=== PATIENT | female | born 1965 ===

== ENCOUNTER → 2018-11-03 | Outpatient (CLI) | payer SELFPAY ==
--- NOTE | 2018-11-07 08:28 | RADIOLOGY IMAGING REPORT ---
FACILITY[place] [facility] [place]IENT NAME: GERARDO SOSA : [id number] MR: [id number]: [id number] EXAM DATE: [id number] ORDERING PHYSICIAN: JAQUELIN SCHMID TECHNOLOGIST: Jenny Delvalle PROCEDURE: BILATERAL DIGITAL SCREENING MAMMOGRAM WITH CAD ASSISTED INTERPRETATION & 3D TOMOSYNTHESIS REASON FOR STUDY: Screening FAMILY HISTORY OF BREAST CANCER: None BREAST PROCEDURES/TREATMENTS: Benign aspiration of both breasts. COMPARISON: Mammograms 07/05/17, 07/09/15, 12/13/14, 12/04/13, 02/14/12 VIEWS OBTAINED: Bilateral 2D & 3D full field CC & MLO projections BREAST DENSITY: The breasts are heterogeneously dense which can obscure small masses. MAMMOGRAM FINDINGS: The parenchymal pattern has remained stable allowing for difference in mammographic technique & patient positioning. DIAGNOSTIC CATEGORY 1--NEGATIVE. RECOMMENDATIONS: ROUTINE MAMMOGRAM AND CLINICAL EVALUATION. IMPRESSION: BIRADS 1: Negative. Dictated by: Lena Littlejohn M.D. on 11/06/2018 at 16:06 Transcribed by: RICH on 11/07/2018 at 7:35 Approved by: Lena Littlejohn M.D. on 11/07/2018 at 8:22 [facility]
== END ==
LOC: MAMO 15:17
PROVIDERS: ATTEND Obstetrics & Gynecology
DX: Z12.31 Encounter for screening mammogram for malignant neoplasm of breast (principal)
CPT/HCPCS: 77063; 77067